=== PATIENT | male | born 1985 | race Caucasian/White ===

== ENCOUNTER 2017-03-03 10:17 | Emergency (ER) | payer MEDICAID ==
--- NOTE | 2017-03-03 11:28 | XRAY Preliminary Report ---
Exam: XR Chest 2 View PA/LAT IMPRESSION: No acute cardiopulmonary disease, with old, healed left-sided rib fractures. [facility] SITE ID: [id number]
--- NOTE | 2017-03-03 11:31 | XRAY Report ---
EXAM: CHEST RADIOGRAPHY EXAM DATE: 03/03/2017 11:13 AM. CLINICAL HISTORY: Chest pain. COMPARISON: None. TECHNIQUE: 2 views. FINDINGS: Lungs/Pleura: No focal opacities evident. No pleural effusion. No pneumothorax. Normal volumes. Mediastinum: Heart and mediastinal contours are unremarkable. Other: Old healed left-sided rib fractures noted. IMPRESSION: No acute cardiopulmonary disease, with old, healed left-sided rib fractures. [facility] Referring Provider Line: [phone] SITE ID: [id number]
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
[2017-03-03 13:36] LABS: EOSINOPHILS % (AUTO) 0.3 %; HCT - HEMATOCRIT 37.9 % (42.0-52.0); HGB - HEMOGLOBIN 12.2 g/dL (14.0-18.0); LYMPHOCYTES % (AUTO) 2.7 %; MEAN CORPUSCULAR HGB CONC 32.2 g/dL (32.0-36.0); MONOCYTES % (AUTO) 2.2 %; NEUTROPHILS % (AUTO) 94.8 %; RED BLOOD COUNT 4.51 10^6/uL (4.70-6.10); RED CELL DISTRIBUTION WIDTH 15.3 % (12.0-15.0); UNCORRECTED WHITE BLOOD COUNT 38.8 x10^3/uL
[2017-03-03] MEDS ORDERED: IOPAMIDOL-300 100 ML VIAL ONE (13:36)
[2017-03-03 13:41] LABS: WHITE BLOOD COUNT 38.8 x10^3/uL (4.8-10.8)
[2017-03-03 13:47] LABS: ALBUMIN/GLOBULIN RATIO 1.3 (1.0-2.2); BILIRUBIN,TOTAL 1.2 mg/dL (0.2-1.0); CALCIUM 9.2 mg/dL (8.5-10.3); CREATININE 0.9 mg/dL (0.6-1.2); TOTAL PROTEIN 7.4 g/dL (6.7-8.2)
[2017-03-03] MEDS ORDERED: VANCOMYCIN INJ 1.5 GM in SODIUM CHLORIDE 0.9% 500 ML IV STA (13:48)
[2017-03-03] MEDS ORDERED: cefTRIAXone 2 GM in SODIUM CHLORIDE 0.9% MINIBAG 100 ML IV STA (13:48)
[2017-03-03] MEDS ORDERED: cefTRIAXone 2 GM VIAL ONE (13:58)
[2017-03-03 13:59] LABS: BAND NEUTROPHILS % (MANUAL) 8 %; LYMPHOCYTES % (MANUAL) 6 %; NEUTROPHILS % (MANUAL) 84 %; PLATELET ESTIMATE, MANUAL INCREASED (>450,000) (NORMAL); PLATELET MORPHOLOGY 1+ GIANT PLATELETS (NORMAL)
[2017-03-03 14:00] LABS: NP AUTO DIFFERENTIAL? YES; NP MAN DIFFERENTIAL? NO
[2017-03-03] MEDS ORDERED: ASPIRIN CHEW 81 MG TABLET PO STA ×2 (14:09→21:07)
[2017-03-03] MEDS ORDERED: VANCOMYCIN 1.5 GM/NS 500 ML 500 ML IV STA (14:24)
[2017-03-03] MEDS ORDERED: IOPAMIDOL-300 100 ML VIAL IVP ONE (14:27)
[2017-03-03] MEDS ORDERED: ASPIRIN CHEW 81 MG TABLET ONE (14:38)
[2017-03-03 14:49] LABS: BILIRUBIN,URINE NEGATIVE (NEGATIVE)
[2017-03-03 14:52] LABS: UA w/ MICROSCOPIC CHARGE YES
[2017-03-03] MEDS ORDERED: SODIUM CHLORIDE FLUSH 0.9% 10 ML SYRINGE IVP ONE ×2 (14:54→17:26)
--- NOTE | 2017-03-03 15:05 | CT Preliminary Report ---
Exam: CT Chest Angio (PE) IMPRESSION: 1. No pulmonary embolus. 2. Chronic-appearing left renal subcapsular hematoma with mass effect on the underlying renal parench yma. See separate report for CT abdomen/pelvis. [facility] SITE ID: [id number]
--- NOTE | 2017-03-03 15:08 | CT Report ---
EXAM: CT ANGIOGRAM CHEST EXAM DATE: 03/03/2017 02:34 PM. CLINICAL HISTORY: Chest pain, mild troponin elevation. COMPARISON: Chest radiograph, same day. TECHNIQUE: Routine helical imaging was performed through the chest in the pulmonary arterial phase. I V Contrast: 100 mL Isovue-300. Reconstructions: Coronal 3-D MIP reconstructions.Sagittal and coronal. In accordance with CT protocol optimization, one or more of the following dose reduction techniques w ere utilized for this exam: automated exposure control, adjustment of mA and/or KV based on patient s ize, or use of iterative reconstructive technique. FINDINGS: Pulmonary Arteries: Diagnostic quality: Adequate through the subsegmental arteries. No pulmonary embolus is seen. Lungs/Pleura: No focal consolidation, pleural effusion, or pneumothorax. Mediastinum: Heart size is normal. No pericardial effusion. No aortic aneurysm or dissection. No rubina opathy. Upper Abdomen: The spleen is surgically absent. Chronic appearing left renal subcapsular hematoma wit h mass effect on the underlying renal parenchyma. Other: The bones are unremarkable. IMPRESSION: 1. No pulmonary embolus. 2. Chronic-appearing left renal subcapsular hematoma with mass effect on the underlying renal parench yma. See separate report for CT abdomen/pelvis. [facility] Referring Provider Line: [phone] SITE ID: [id number]
--- NOTE | 2017-03-03 15:15 | CT Preliminary Report ---
Exam: CT Abdomen/Pelvis W/ IMPRESSION: 1. Postoperative changes of splenectomy and partial left nephrectomy. Chronic-appearing left renal pierre bcapsular hematomas. 2. No acute inflammatory or obstructive process identified to explain left lower quadrant pain. [facility] The above findings were discussed with Dr. Nichols by Dr. Dee Mckeon at 15:09 hrs on 03/03/17. SITE ID: [id number]
--- NOTE | 2017-03-03 15:18 | CT Report ---
EXAM: CT ABDOMEN AND PELVIS EXAM DATE: 03/03/2017 02:35 PM. CLINICAL HISTORY: Left lower quadrant tenderness to palpation. Chills. COMPARISONS: None. TECHNIQUE: Routine helical CT imaging was performed through the abdomen and pelvis. IV contrast: 100 mL Isovue-300, administered as part of concurrent CTA chest. Enteric contrast: None. Reconstructions: Coronal and sagittal. In accordance with CT protocol optimization, one or more of the following dose reduction techniques w ere utilized for this exam: automated exposure control, adjustment of mA and/or KV based on patient s ize, or use of iterative reconstructive technique. FINDINGS: Lung Bases: Unremarkable. Liver: Normal. No focal hepatic lesion. Gallbladder/Bile Ducts: Unremarkable. No visualized stones or biliary duct dilatation. Spleen: Surgically absent. Pancreas: Normal. Adrenal Glands: Normal. Kidneys and Ureters: Post partial left nephrectomy. Chronic appearing subcapsular hematomas abutting staple lines along the upper pole, measuring approximately 4.1 x 3.1 x 7.4 cm laterally (axial image 24, coronal image 31) and 4.8 x 1.8 x 5.0 cm medially (axial image 13, coronal image 37), with mass e ffect on the underlying renal parenchyma. No perinephric fat stranding. No stones, hydronephrosis, or hydroureter. Peritoneal Cavity/Bowel: No evidence for bowel obstruction or acute inflammatory process. The appendi x is normal. No free fluid, pneumoperitoneum, or adenopathy. Pelvic Organs: Normal. The bladder and visualized pelvic organs are within normal limits. Vasculature: Normal. 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 No ac james bony abnormality. Other: None. IMPRESSION: 1. Postoperative changes of splenectomy and partial left nephrectomy. Chronic-appearing left renal pierre bcapsular hematomas. 2. No acute inflammatory or obstructive process identified to explain left lower quadrant pain. [facility] The above findings were discussed with Dr. Nichols by Dr. Dee Mckeon at 15:09 hrs on 03/03/17. Referring Provider Line: [phone] SITE ID: [id number]
[2017-03-03 15:32] LABS: UR CULTURE IF IND INDICATED
[2017-03-03] MEDS ORDERED: ATORVASTATIN 40 MG TABLET PO STA (15:57)
[2017-03-03] MEDS ORDERED: METOPROLOL TARTRATE 50 MG TABLET PO STA (15:57)
[2017-03-03] MEDS ORDERED: HEPARIN 5,000 UNIT/ML VIAL IVP ONE (15:57)
[2017-03-03] MEDS ORDERED: HEPARIN 25000UNITS/500ML (D5W) 500 ML IV STA (15:57)
[2017-03-03] MEDS ORDERED: HEPARIN 5,000 UNIT/ML VIAL ONE (16:05)
[2017-03-03] MEDS ORDERED: METOPROLOL TARTRATE 50 MG TABLET ONE (16:05)
[2017-03-03] MEDS ORDERED: HEPARIN 25000UNITS/500ML (D5W) 500 ML IV ONE (16:06)
[2017-03-03] MEDS ORDERED: ASPIRIN 325 MG TABLET PO STA (21:41)
[2017-03-03] MEDS ORDERED: ASPIRIN 325 MG TABLET PO ONE (21:42)
[2017-03-03 23:43] VITALS: BP 118/79
== END 2017-03-03 23:45 | disposition short-term general hospital (02) ==
LOC: ED 10:17
DX: I21.4 Non-ST elevation (NSTEMI) myocardial infarction (principal); A41.9 Sepsis, unspecified organism; N39.0 Urinary tract infection, site not specified; Z90.81 Acquired absence of spleen
CPT/HCPCS: 36415; 71020; 71275; 74177; 80053; 81001; 82550; 82553; 83605; 83690; 84484; 85025; 85379; 85651; 86140; 87040; 87086; 93005; 96365; 96367; 96375; 96376; 99285; 99291; A9270; Q9967; 81003

== ENCOUNTER 2017-03-03 23:44 | Outpatient (CLI) | payer MEDICAID | END 2017-03-03 23:45 | disposition short-term general hospital (02) | LOC: EMS 23:44 | PROVIDERS: ATTEND Surgery | DX: R07.9 Chest pain, unspecified (principal) | CPT/HCPCS: A0425; A0428 ==